=== PATIENT | male | born 1980 | race Caucasian/White ===

== ENCOUNTER 2024-10-26 21:19 | Emergency (ER) | payer MEDICARE ==
[~2024-10-26] VITALS: Wt 81.6 kg
[~2024-10-26 21:19] MED LIST: CLOZAPINE100 MG PO; FLUOXETINE HYDR20 M1 PO; FUROSEMIDE40 MG PO; HYDROCHLOROTHIA25 M1 PO; LEVOTHYROXINE112 MCG PO; LOSARTAN POTASS25 M1 PO; OMEPRAZOLE MAGN20 MG PO; ZETIA10 MG PO
[2024-10-26 22:01] LABS: BASO % 0.2 % (0.0-1.0); MEAN CELL VOLUME 93.9 fl (80.0-94.0); MEAN CORPUSCULAR HGB 29.9 pg (27.0-31.0); MEAN CORPUSCULAR HGB CONC 31.9 g/dl (33.0-37.0); MEAN PLATELET VOLUME 9.7 fl (9.6-12.3); MONO # 0.7 10*3/uL (0.1-1.0); MONO % 11.4 % (3.0-9.0); NEUT # 3.7 10*3/uL (2.3-7.9); NEUT % 58.6 % (47.0-73.0); PLATELET COUNT AUTOMATED 207 10*3/uL (130-400); RED BLOOD COUNT 3.94 10*6/uL (4.50-5.90); RED CELL DISTRI WIDTH 14.4 % (0-14.5); WHITE BLOOD COUNT 6.3 10*3/uL (4.8-10.8)
[2024-10-26 22:27] LABS: BUN 15 mg/dl (9-23); CHLORIDE 109 mmol/L (98-107); CPK 634 U/L (34-171); ETHYL ALCOHOL 3.4 mg/dl (<3); POTASSIUM 3.7 mmol/L (3.4-5.1)
[2024-10-26] MEDS ORDERED: LORazepam 1 MG TAB PO ONE (22:30)
[2024-10-26] MEDS ORDERED: DIVALPROEX SOD500 MG PO (22:35)
[2024-10-26] MEDS ORDERED: CHILDREN'S FLO5.9 ML INH (22:36)
[2024-10-26] MEDS ORDERED: CLARITIN10 MG PO (22:38)
[2024-10-26] MEDS ORDERED: TRILEPTAL150 MG PO (22:38)
[2024-10-26] MEDS ORDERED: RISPERDAL1 M1 PO (22:39)
[2024-10-26] MEDS ORDERED: RISPERDAL0.5 MG PO (22:39)
[2024-10-26] MEDS ORDERED: SENNA8.6 MG PO (22:40)
[2024-10-26] MEDS ORDERED: 8 HOUR PAIN RE650 M1 PO (22:41)
[2024-10-26] MEDS ORDERED: MULTIVITAMIN1 EACH PO (22:43)
[2024-10-26 23:15] LABS: BILIRUBIN Negative (Negative); BLOOD 3+ (Negative); CLARITY Clear (Clear); COLOR Yellow (Yellow); GLUCOSE Negative (Negative); KETONE 1+ (Negative); LEUKO ESTERASE 1+ (Negative); NITRITE Negative (Negative); PH 5.5 (4.5-8.0); SPECIFIC GRAVITY 1.025 (1.001-1.030)
[2024-10-26 23:21] LABS: URINE AMPHETAMINES Negative (1000ng/ml); URINE BARBITURATES Negative (200ng/ml); URINE BENZODIAZEPINES Negative (200ng/ml); URINE CANNABINOIDS (THC) Negative (50ng/ml); URINE COCAINE Negative (300ng/ml); URINE METHADONE Negative (300ng/ml); URINE OPIATES Negative (300ng/ml); URINE PHENCYCLIDINE Negative (25ng/ml)
[2024-10-26 23:46] LABS: BACTERIA TRACE; RBC 41-50 rbc/hpf (0-2); WBC 21-30 wbc/hpf (0-5)
[2024-10-27] MEDS ORDERED: LORazepam 1 MG TAB PO ONE (01:40)
[2024-10-27] MEDS ORDERED: ACETAMINOPHEN 325 MG TAB PO ONE (01:40)
[2024-10-27] MEDS ORDERED: SODIUM CHLORIDE 0.9% 1,000 ML IV ONE (04:55)
== END 2024-10-27 15:30 | disposition short-term general hospital (02) ==
LOC: ED 21:19
PROVIDERS: Emergency Medicine
DX: F41.9 Anxiety disorder, unspecified (principal); F31.9 Bipolar disorder, unspecified; K21.9 Gastro-esophageal reflux disease without esophagitis; I10 Essential (primary) hypertension; E03.9 Hypothyroidism, unspecified; F17.210 Nicotine dependence, cigarettes, uncomplicated; Z88.8 Allergy status to other drugs, medicaments and biological substances; Z79.899 Other long term (current) drug therapy; Z98.890 Other specified postprocedural states

== ENCOUNTER 2024-11-12 23:15 | Emergency (ER) | payer MEDICARE ==
[~2024-11-12] VITALS: Ht 172.7 cm; Wt 95.3 kg
[~2024-11-12 23:15] MED LIST changes: +8 HOUR PAIN RE650 M1 PO; +CHILDREN'S FLO5.9 ML INH; +CLARITIN10 MG PO; +DIVALPROEX SOD500 MG PO; +MULTIVITAMIN1 EACH PO; +RISPERDAL0.5 MG PO; +RISPERDAL1 M1 PO; +SENNA8.6 MG PO; +TRILEPTAL150 MG PO
[2024-11-12 23:30] LABS: BASO % 0.1 % (0.0-1.0); EOS % 0.1 % (1.0-4.0); HEMATOCRIT 40.9 % (42.0-52.0); MEAN CELL VOLUME 92.3 fl (80.0-94.0); MEAN CORPUSCULAR HGB 30.2 pg (27.0-31.0); MEAN CORPUSCULAR HGB CONC 32.8 g/dl (33.0-37.0); MEAN PLATELET VOLUME 9.1 fl (9.6-12.3); MONO # 0.7 10*3/uL (0.1-1.0); NEUT # 5.3 10*3/uL (2.3-7.9); NEUT % 59.2 % (47.0-73.0); PLATELET COUNT AUTOMATED 180 10*3/uL (130-400); RED BLOOD COUNT 4.43 10*6/uL (4.50-5.90); RED CELL DISTRI WIDTH 13.5 % (0-14.5); WHITE BLOOD COUNT 8.9 10*3/uL (4.8-10.8)
[2024-11-13 00:02] LABS: ALKALINE PHOSPHATASE 72 U/L (46-116); BUN 16 mg/dl (9-23); CHLORIDE 99 mmol/L (98-107); POTASSIUM 2.8 mmol/L (3.4-5.1); SGPT/ALT 18 U/L (5-49); TOTAL PROTEIN 7.3 gm/dL (6.0-8.0)
[2024-11-13] MEDS ORDERED: POTASSIUM CHLORIDE 20 MEQ TAB PO ONE ×2 (01:20→07:50)
[2024-11-13 01:40] LABS: BILIRUBIN Negative (Negative); BLOOD Trace-Intact (Negative); CLARITY Clear (Clear); COLOR Yellow (Yellow); GLUCOSE Negative (Negative); KETONE Trace (Negative); LEUKO ESTERASE 1+ (Negative); NITRITE Negative (Negative); PH 5.5 (4.5-8.0); SPECIFIC GRAVITY 1.025 (1.001-1.030)
[2024-11-13 01:47] LABS: URINE AMPHETAMINES Negative (1000ng/ml); URINE BARBITURATES Negative (200ng/ml); URINE BENZODIAZEPINES Negative (200ng/ml); URINE CANNABINOIDS (THC) Negative (50ng/ml); URINE COCAINE Negative (300ng/ml); URINE METHADONE Negative (300ng/ml); URINE OPIATES Negative (300ng/ml); URINE PHENCYCLIDINE Negative (25ng/ml)
[2024-11-13 02:10] LABS: BACTERIA TRACE; WBC 16-20 wbc/hpf (0-5)
[2024-11-13] MEDS ORDERED: IBUPROFEN 800 MG TAB PO ONE (07:50)
[2024-11-13] MEDS ORDERED: POTASSIUM CHLO20 ME3 PO (10:43)
== END 2024-11-13 11:02 | disposition home or self-care (01) ==
LOC: ED 23:15
PROVIDERS: Internal Medicine
DX: F25.9 Schizoaffective disorder, unspecified (principal); E87.6 Hypokalemia; R32 Unspecified urinary incontinence; R25.1 Tremor, unspecified; Z88.8 Allergy status to other drugs, medicaments and biological substances; Z79.899 Other long term (current) drug therapy; Z98.890 Other specified postprocedural states; Z87.891 Personal history of nicotine dependence

== ENCOUNTER → 2025-05-14 | Outpatient (CLI) | payer MEDICARE ==
[~2025-05-14] MED LIST changes: +BUSPAR5 MG PO; +COZAAR25 M1 PO; +FLUOXETINE HCL20 M2 PO; +LEVOTHYROXINE75 MCG PO; +LEVOTHYROXINE88 MCG PO; +POTASSIUM CHLO20 ME3 PO; +PRILOSEC20 M1 PO; +TRAZODONE50 MG PO
== END | disposition home or self-care (01) ==
LOC: CARD 09:28
PROVIDERS: ATTEND Nurse Practitioner Family
DX: I11.9 Hypertensive heart disease without heart failure (principal); E78.5 Hyperlipidemia, unspecified; R42 Dizziness and giddiness; Z87.891 Personal history of nicotine dependence